=== PATIENT | male | born 1940 | race African-American/Black ===

== ENCOUNTER 2017-03-29 18:31 | Emergency (ER) | payer MEDICARE ==
[~2017-03-29] VITALS: Ht 175.3 cm; Wt 93.0 kg
[~2017-03-29 18:31] MED LIST: KEFLEX500 MG ORAL
[2017-03-29] MEDS ORDERED: Cephalexin 500mg cap ORAL ONE (19:00)
[2017-03-29] MEDS ORDERED: Ascorbic Acid 500mg tab ORAL ONE (19:00)
[2017-03-29 20:00] VITALS: BP 188/107
[2017-03-29] MEDS ORDERED: KEFLEX500 MG ORAL (20:08)
[2017-03-29] MEDS ORDERED: VITAMIN C500 M1 ORAL (20:08)
[2017-03-29] MEDS ORDERED: IBUPROFEN600 MG ORAL (20:09)
[2017-03-29 20:15] VITALS: BP 188/107
[2017-03-29] MEDS ORDERED: COLCHICINE0.6 M1 PO ×2 (23:01→23:02)
--- NOTE | 2017-03-29 23:07 | Emergency Room Report ---
History of Present Illness General Chief Complaint: Edema Source: Patient Present Illness HPI Patient is a 76-year-old male presented after increased right-sided hand pain and swelling. Patient gradual onset of symptoms over the past one day. Patient prior history of similar substance in the past when he had gout flareups. Patient had been having increased difficulty moving his hand without pain. The patient any fever. He denied recent trauma. Allergies: Coded Allergies: No Known Allergies (Unverified , 04/20/16) Patient History Reviewed Nursing Documentation: PMH: Agreed, PSxH: Agreed Nursing Documentation-PMH Past Medical History: No History, Except For Hx Hypertension: Yes Hx Diabetes: Yes Review of Systems All Other Systems: negative except mentioned in HPI Physical Exam Vital Signs Date Time Temp Pulse Resp B/P Pulse Ox O2 Delivery O2 Flow Rate FiO2 03/29/17 18:41 97.9 98 18 188/107 96 Room Air Sp02 EP Interpretation: reviewed, normal General Appearance: normal inspection, well appearing, no apparent distress, alert, GCS 15 Head: atraumatic ENT: normal ENT inspection, hearing grossly normal, normal voice Neck: normal inspection, full range of motion, supple, no bony tend Respiratory: normal inspection, lungs clear, normal breath sounds, no respiratory distress, no retraction, no wheezing Cardiovascular #1: regular rate, rhythm, no edema Gastrointestinal: normal inspection, normal bowel sounds, non tender, soft, no guarding, no hernia Genitourinary: no CVA tenderness Musculoskeletal: back normal, normal range of motion, swelling - right hand, wrist Neurologic: normal inspection, alert, oriented x3, responsive, big data lead III-XII nml as tested, speech normal Psychiatric: normal inspection, judgement/insight normal, mood/affect normal Skin: normal inspection, normal color, no rash Medical Decision Making Diagnostic Impression: Primary Impression: Cellulitis of hand Additional Impression: Gout ER Course Patient presented for right hand pain and swelling. Differential diagnoses include was noted to cellulitis, insect bite, arthritis fracture among others. X-ray imaging of the right hand 3 views interpreted by me showed a degenerative changes without fracture. Uric acid level is noted be somewhat elevated. The patient was given prescription for anti-inflammatory medications and colchicine. He is also given antibiotics do to the appearance of possible cellulitis to the hand.The patient is advised to follow up with primary care doctor in 1-2 days. Patient is advised to return if any worsening condition or if any changes in status that are concerning. Labs Test 03/29/17 19:15 Uric Acid 7.9 mg/dL (3.0-7.5) Last Vital Signs Date Time Temp Pulse Resp B/P Pulse Ox O2 Delivery O2 Flow Rate FiO2 03/29/17 18:41 97.9 98 18 188/107 96 Room Air Status: improved Disposition: HOME, SELF-CARE Condition: Stable Scripts Colchicine (Colchicine) 0.6 Mg Capsule 0.6 MG PO DAILY, #14 CAP Prov: Javi Donato 03/29/17 Ibuprofen* (MOTRIN*) 600 Mg Tablet 600 MG ORAL Q8H Y for For Pain, #30 TAB 0 Refills Prov: Javi Donato 03/29/17 Ascorbic Acid* (VITAMIN C*) 500 Mg Tablet 500 MG ORAL TWICE A DAY, #20 TAB Prov: Javi Donato 03/29/17 Cephalexin* (KEFLEX*) 500 Mg Capsule 500 MG ORAL Q6H, #28 CAP Prov: Javi Donato 03/29/17 Referrals: [facility] (PCP) Patient Instructions: Cellulitis Javi Donato March 29, 2017 23:07
--- NOTE | 2017-03-30 10:31 | Diagnostic Imaging Report ---
Indications: Right hand pain Technique: 3 views of the right hand. Findings: Comparison: None. Soft tissues appear mildly, diffusely swollen. No fracture, dislocation, lytic destruction, periosteal reaction, soft tissue gas or foreign body,, or other acute changes are demonstrated. No deformity, alignment abnormality, arthritic change, soft tissue calcification, or other chronic changes are demonstrated. IMPRESSION: Soft tissue swelling, nonspecific Otherwise negative right hand series.
== END 2017-03-29 20:15 | disposition home or self-care (01) ==
LOC: EMR 19:00
DX: L03.113 Cellulitis of right upper limb (principal); M10.9 Gout, unspecified; M79.641 Pain in right hand; M79.89 Other specified soft tissue disorders; I10 Essential (primary) hypertension; E11.9 Type 2 diabetes mellitus without complications
CPT/HCPCS: 36415; 84550; 99284